=== PATIENT | male | born 1965 | race Caucasian/White ===

== ENCOUNTER 2020-02-27 12:44 | Outpatient (CLI) | payer OTHER, SELFPAY ==
--- NOTE | ~2020-02-27 | US_ITS ---
EXAMINATION: US carotid duplex BI EXAM DATE: 02/27/2020 13:40 INDICATION: Left carotid bruit. TECHNIQUE: Grayscale, color and pulsed Doppler images of the cervical carotid arteries were obtained . The degree of vessel stenosis is placed in one of the following categories: normal, <50% stenosis, 50-69% stenosis, >=70% stenosis but less than near-occlusion, near-occlusion, or occlusion. Note that percent stenosis relative to normal distal artery lumen diameter is indirectly measured from velocit y measurements as described by Philip, et al. Radiology 2003; 229:340-346. There is no prior study fo r comparison. FINDINGS: RIGHT SIDE: Right common carotid artery peak systolic velocity (PSV in cm/s): 90 Right bulb/internal carotid artery peak systolic velocity (PSV in cm/s): 108 Right internal carotid artery end diastolic velocity (EDV in cm/s): 35 Right ICA/CCA peak systolic ratio: 1.2 Right external carotid artery peak systolic velocity (PSV in cm/s): 98 Right vertebral artery antegrade flow: yes There is mild carotid bulb plaque. Velocity and Doppler waveforms in the common and internal carotid arteries is normal. LEFT SIDE: Left common carotid artery peak systolic velocity (PSV in cm/s): 82 Left bulb/internal carotid artery peak systolic velocity (PSV in cm/s): 102 Left internal carotid artery end diastolic velocity (EDV in cm/s): 48 Left ICA/CCA peak systolic ratio: 1.2 Left external carotid artery peak systolic velocity (PSV in cm/s): 304 Left vertebral artery antegrade flow: Yes There is moderate carotid bulb plaque. Velocity and Doppler waveforms in the common and internal carotid arteries is normal. Elevated rrts al carotid artery velocity. IMPRESSION: 1. Less than 50 percent stenosis in the right internal carotid artery. 2. Less than 50 percent stenosis in the left internal carotid artery. > Reviewed, dictated and finalized at location B.
== END 2020-02-27 12:45 | disposition home or self-care (01) ==
PROVIDERS: PCP Family Medicine; Visit Provider Physician Assistant Medical
DX: I65.23 Occlusion and stenosis of bilateral carotid arteries (principal)
CPT/HCPCS: 93880

== ENCOUNTER 2021-07-08 10:57 | Emergency (ER) | payer OTHER, SELFPAY ==
[2021-07-08 11:10] VITALS: BP 156/77; PULSE 99; RESP 20; TEMP 36.6; O2SAT 98
--- NOTE | 2021-07-08 12:01 | ED.URI ---
HPI - URI/Sore Throat General Chief Complaint: Upper Respiratory Infection Stated Complaint: Chest Congestion/Cough Time Seen by Provider: 07/08/21 12:01 Source: patient and RN notes reviewed Mode of arrival: ambulatory Limitations: no limitations History of Present Illness HPI Narrative: Anshu is a 55-year-old male patient who ambulated into the [facility]. Patient patient states he has a 3 to 4-day history of cough congestion for the last 3 days. Patient states the cough is getting much worse and when he lays down he coughs. Patient has a history of insulin-dependent diabetes. Patient has been taking muco-kui-zigikxy DayQuil and NyQuil without relief. Patient states he was a long-term smoker quit 6 to 7 years ago. MD elicited complaint: cough Related Data Home Medications Medication Instructions Recorded Confirmed aspirin 81 mg tablet,delayed 81 mg PO DAILY 10/20/19 07/08/21 release insulin syringe-needle U-100 0.5 #10 each 10/20/19 mL 31 gauge x 5/16 multivitamin 1 tablet PO DAILY 10/20/19 07/08/21 insulin glargine [Lantus U-100 40 unit SUBCUT DAILY 07/08/21 07/08/21 Insulin] Allergies Allergy/AdvReac Type Severity Reaction Status Date / Time Sulfa (Sulfonamide Allergy Unknown Skin Verified 05/01/20 13:40 Antibiotics) Reaction Review of Systems Review of Systems: CONSTITUTIONAL: Denies body aches, fever, chills, or sweats. EYES: Denies visual changes, redness, or discharge. ENT: Denies rhinorrhea,+ congestion, denies sore throat, or otalgia. CARDIOVASCULAR: Denies chest pain, palpitations, or edema. RESPIRATORY: + cough or dyspnea. GASTROINTESTINAL: Denies abdominal pain, nausea, vomiting, or diarrhea. GENITOURINARY: Denies dysuria or hematuria. SKIN: Denies rash, itching, or wounds. MUSCULOSKELETAL: Denies back pain, joint pain, or myalgia. NEUROLOGIC: Denies headache, numbness, tingling, or weakness. PSYCH: Denies depression or anxiety. All systems reviewed & are unremarkable except as noted in HPI and below PMFSH Past Medical History Medical History Cataract associated with type 1 diabetes mellitus Diabetic retinopathy, nonproliferative, mild Vitreous detachment of both eyes Family History Family History Father Hypertension Family history of lymphoma Mother Hypertension Acute myocardial infarction Social History Social History Smoking status: Current every day smoker Alcohol intake: current Comments At time of signature, I have reviewed and agree with nursing past medical, surgical, social and family history unless otherwise noted. Please see nursing chart for further information. There is no relevant family history pertinent to the presenting complaint Exam Narrative: GENERAL: Well-appearing, well-nourished, and in no acute distress. HEAD: Normocephalic, atraumatic. EYES: EOMI. No redness or drainage. Conjunctivae normal. ENT: Mucous membranes pink and moist. Nasal passage erythematous with clear rhinorrhea. Bilateral tympanic membranes are dull without erythema and minimal bulging. Posterior pharynx is erythemic without exudate. N NECK: Normal AROM. Supple. No lymphadenopathy. CHEST: No respiratory distress. Inspiratory next Tory wheezing heard throughout the lung ocampo. MUSCULOSKELETAL: No bony tenderness. EXTREMITIES: Normal range of motion. No edema. SKIN: Warm, dry, no rash. Capillary refill normal. Normal skin turgor. NEURO: No focal deficits. Alert and oriented x3. Gait steady. PSYCH: Normal affect. No signs of depression or anxiety. Course Vital Signs Vital signs: Vital Signs Temperature 36.6 C 07/08/21 11:10 Pulse Rate 99 07/08/21 11:10 Respiratory Rate 20 07/08/21 11:10 Blood Pressure 156/77 H 07/08/21 11:10 Pulse Oximetry 98 07/08/21 11:10
== END 2021-07-08 12:21 | disposition home or self-care (01) ==
PROVIDERS: Emergency Provider Nurse Practitioner Family; PCP Family Medicine
DX: J40 Bronchitis, not specified as acute or chronic (principal); H26.9 Unspecified cataract; E10.3299 Type 1 diabetes mellitus with mild nonproliferative diabetic retinopathy without macular edema, unspecified eye; Z87.891 Personal history of nicotine dependence; Z79.82 Long term (current) use of aspirin
CPT/HCPCS: 99213; G0463

== ENCOUNTER 2022-02-03 12:24 | Inpatient (IN) | payer OTHER, SELFPAY ==
[2022-02-03] VITALS (7 sets, daily range): BP systolic 131–180; BP diastolic 75–105; PULSE 99–116; RESP 18–20; TEMP 36.2–36.7; O2SAT 96–99; BMI 29.2
--- NOTE | ~2022-02-03 | XR_ITS ---
XR chest 2V 02/03/2022 12:52 Indication: Chest pain, shortness of breath. COPD. Procedure: 2 view chest Comparison: No prior studies for comparison. Findings: There is widespread bilateral airspace disease. Cardiomegaly. No pleural effusion or pneumo thorax. There is pectus excavatum. Impression: 1: Widespread bilateral airspace disease, most likely edema. Pneumonia less favored. 2: Cardiomegaly. Reviewed, dictated and finalized at location A. Impression: 1: Widespread bilateral airspace disease, most likely edema. Pneumonia less fav ored. 2: Cardiomegaly.
--- NOTE | 2022-02-03 12:29 | ECG_ITS ---
Measurements Intervals [place] Rate: 112 P: 71 [place]: 141 QRS: 89 QRSD: 102 T: 168 QT: 338 QTc: 463 Interpretive Statements SINUS TACHYCARDIA POSSIBLE RIGHT ATRIAL ENLARGEMENT LEFT ATRIAL ENLARGEMENT BORDERLINE R WAVE PROGRESSION, ANTERIOR LEADS ST-T WAVE ABNORMALITY IN HIGH LATERAL LEADS- CONSIDER ISCHEMIA BASELINE WANDER- V3 ABNORMAL ECG Electronically Signed On 02-03-2022 13:50:23 CDT by Ja Carrasquillo D.O.
[2022-02-03 12:53] LABS: Alanine Aminotransferase 24 U/L (6-50); Albumin Level 4.5 g/dL (3.5-5.1); Alkaline Phosphatase 91 U/L (38-126); Anion Gap 6 mmol/L (8-16); Aspartate Amino Transferase 40 U/L (17-59); Basophils Absolute Auto 0.1 K/mm3 (0.0-0.1); Basophils Percent Auto 0.4 % (0.2-1.2); Bilirubin,Total 0.6 mg/dL (0.2-1.3); Blood Urea Nitrogen 11 mg/dL (9-20); Carbon Dioxide 27 mmol/L (22-30); Chloride 102 mmol/L (98-107); Eosinophils Absolute Auto 0.4 K/mm3 (0-0.3); Eosinophils Percent Auto 2.8 % (0-4.4); Estimated CRCL calculation 64 ml/min; Estimated Glomerular Filt Rate > 60; Glucose 200 mg/dL (65-110); Hematocrit 41.1 % (42.0-52.0); Hemoglobin 13.2 g/dL (14.0-18.0); Immature Granulocyte Absolute 0.04 K/mm3 (0.00-0.031); Immature Granulocyte Percent A 0.3 % (0-0.5); Lipase 35 U/L (23-300); Lymphocytes Percent Auto 13.3 % (18.3-44.2); Mean Corpuscular HGB Conc 32.1 g/dl (32-36); Mean Corpuscular Hemoglobin 30.3 pg (26-34); Mean Corpuscular Volume 94.3 fl (80-100); Mean Platelet Volume 10.2 fl (7.4-10.4); Monocytes Absolute Auto 1.2 K/mm3 (0.1-0.6); Monocytes Percent Auto 8.3 % (2.6-8.5); Neutrophils Absolute Auto 10.7 K/mm3 (1.3-6.7); Neutrophils Percent Auto 74.9 % (45.5-73.1); Platelet Count Result 335 k/mm3 (150-375); Potassium 4.5 mmol/L (3.4-5.0); Red Blood Count 4.36 M/mm3 (4.6-6.20); Red Cell Distribution Width 14.3 % (11.5-14.5); Sodium 135 mmol/L (137-145); White Blood Count 14.3 K/mm3 (4.5-10.0)
[2022-02-03 12:58] LABS: Prothrombin Time 12.8 Seconds (11.1-14.7)
[2022-02-03 12:59] LABS: Partial Thromboplastin Time 33.6 SECONDS (22.3-36.8)
[2022-02-03 13:11] LABS: Troponin I 0.486 ng/mL (0.000-0.034)
[2022-02-03] MEDS: ASPIRIN 81 MG CHEWABLE TABLET 324 MG PO (13:41)
--- NOTE | 2022-02-03 13:49 | ECG_ITS ---
Measurements Intervals [place] Rate: 103 P: 67 [place]: 141 QRS: 34 QRSD: 102 T: -4 QT: 351 QTc: 460 Interpretive Statements SINUS TACHYCARDIA LEFT ATRIAL ENLARGEMENT DELAYED PRECORDIAL R/S TRANSITION BORDERLINE ST-T WAVE ABNORMALITY- INF/HIGH LAT LEADS BORDERLINE ECG Electronically Signed On 02-03-2022 14:35:42 CDT by Ja Carrasquillo D.O.
[2022-02-03 13:54] LABS: NT Pro B Type Natriuretic Pept 2420 pg/mL (5-100)
--- NOTE | 2022-02-03 13:57 | ED.SOB ---
HPI - SOB/Dyspnea General Chief Complaint: Shortness of Breath/Dyspnea Stated Complaint: COPD Issues Time Seen by Provider: 02/03/22 13:26 History of Present Illness HPI Narrative: 56-year-old male who is here because he was having some shortness of breath, denies any chest pain whatsoever, he states that he feels like his usual COPD exacerbations that is why he came to the hospital. No nausea or vomiting, no diaphoresis, no cough. No history of cardiac problems. He has been taking all of his blood pressure medications. Related Data Home Medications Medication Instructions Recorded Confirmed aspirin 81 mg tablet,delayed 81 mg PO DAILY 10/20/19 02/03/22 release insulin syringe-needle U-100 0.5 #10 ea 10/20/19 02/03/22 mL 31 gauge x 5/16 (Advocate Syringes) multivitamin 1 tablet PO DAILY 10/20/19 02/03/22 insulin glargine 100 unit/mL 40 unit subcut HS 07/08/21 02/03/22 subcutaneous solution (Lantus U-100 Insulin) insulin lispro 100 unit/mL 15 unit subcut TIDWM 02/03/22 02/03/22 subcutaneous solution (Humalog U-100 Insulin) Allergies Allergy/AdvReac Type Severity Reaction Status Date / Time Sulfa (Sulfonamide Allergy Unknown Skin Verified 05/01/20 13:40 Antibiotics) Reaction Review of Systems Review of Systems: CONST: No fever. HEENT: No sore throat C/V: No chest pain RESP: Shortness of breath GI: No abdominal pain : No dysuria. M/S: No joint pain. SKIN: No rash. NEURO: [No headache or focal numbness or weakness] PSYCH: [No depression] [facility] Past Medical History Medical History Cataract associated with type 1 diabetes mellitus Diabetic retinopathy, nonproliferative, mild Vitreous detachment of both eyes Family History Family History Father Hypertension Family history of lymphoma Mother Hypertension Acute myocardial infarction Social History Social History Smoking packs per day: 1 Smoking cigarettes per day: 20.0 Years smoked: 45 Smoking pack-years: 45.00 Smoking status: Current every day smoker Tobacco type: cigarettes Second hand tobacco smoke exposure: Yes Additional smoking assessment comments: 5 cigars per day Alcohol intake: never Substance use: never Substance use type: does not use Spiritual care concerns: No Exam Narrative: EXAMINATION OF ORGAN SYSTEMS/BODY AREAS: Constitutional: Vital signs per nursing GENERAL: Slightly tachypneic but nontoxic appearing HEAD: Normal with no signs of head trauma. EYES: EOMI, conjunctiva normal ENT: Hearing grossly intact LUNGS: Slightly labored breathing but no wheezing HEART: Tachycardic ABD: [Soft], nontender EXT: Normal range of motion SKIN: [No rashes or lesions.] NEURO: [Alert and oriented x 3. No gross focal sensory or strength deficits.] PSYCH: Normal affect Course Vital Signs Vital signs: Vital Signs Temperature 97.6 F 02/03/22 12:27 Pulse Rate 116 H 02/03/22 12:27 Respiratory Rate 20 02/03/22 12:27 Blood Pressure 178/85 H 02/03/22 12:27 Pulse Oximetry 98 02/03/22 12:27 Oxygen Delivery Room Air 02/03/22 12:27 Temperature 97.5 F L 02/03/22 20:00 Pulse Rate 102 H 02/03/22 20:00 Respiratory Rate 20 02/03/22 20:00 Blood Pressure 162/105 H 02/03/22 20:00 Pulse Oximetry 97 02/03/22 20:00 Oxygen Delivery Room Air 02/03/22 13:45 MDM - SOB/Dyspnea MDM Narrative Medical decision making narrative: 56-year-old male presenting with shortness of breath, on exam he is tachycardic but not wheezing, I am therefore concerned for other possible causes of his shortness of breath. EKG - 12-Lead: Performed at 1419. Interpreted by me. [Sinus rhythm]. Rate 103. normal axis. NM-interval 141. QRS duration 102. QTc 460. There is some possible ST elevation in lead III with some pos
[2022-02-03] MEDS: FUROSEMIDE INJ 40 MG/4 ML VIAL 20 MG IV PUSH (13:59)
[2022-02-03 14:55] LABS: Glucose Point of Care 40 mg/dl (65-105)
--- NOTE | 2022-02-03 14:58 | PC.NURSE ---
Pt called out states that he is feeling shakey probably due to low blood sugar. Pts blood sugar was taken and it was 40. Pt requested a pepsi. Informed EDP of this.
[2022-02-03 15:15] LABS: SARS-CoV-2 RNA PCR Negative
[2022-02-03 16:00] LABS: Troponin I 0.565 ng/mL (0.000-0.034)
[2022-02-03] MEDS: HEPARIN SODIUM 5,000 UNITS/ML VIAL 3500 UNITS IV PUSH (16:18)
[2022-02-03] MEDS: HEPARIN SOD/D5W 100 UNITS/ML 25,000 UNITS/250 ML BAG 7 UNITS IV CONT (16:58)
--- NOTE | 2022-02-03 17:06 | PC.NURSE ---
Cardiology speaking with pt at this time
--- NOTE | 2022-02-03 17:16 | PC.NURSE ---
This RN called to give report. Was told that nurse taking my pt was running around and will call me back
--- NOTE | 2022-02-03 17:49 | PM.CNCAR ---
Assessment and Plan Assessment and plan (1) Tobacco use disorder, moderate, dependence: Code(s): F17.200 - Nicotine dependence, unspecified, uncomplicated Status: Acute Assessment and Plan: Counseled regarding smoking cessation.g (2) Essential (primary) hypertension: Code(s): I10 - Essential (primary) hypertension Status: Acute Assessment and Plan: Stable. (3) Mixed hyperlipidemia: Code(s): E78.2 - Mixed hyperlipidemia Status: Acute Assessment and Plan: On Simvastatin. (4) DM eye manif type I: Code(s): E10.39 - Type 1 diabetes mellitus with other diabetic ophthalmic complication Status: Acute Assessment and Plan: Managed by hospitalist. (5) Elevated troponin: Code(s): R77.8 - Other specified abnormalities of plasma proteins Status: Acute Assessment and Plan: This could be CHF, ACS, COPD/pneumonia. Troponin 0.48, then 0.56. Serial troponin to peak. No classic symptom to suggest ACS but he does have DM and his symptom could be SOB. Obtain echo. If this shows cardiomyopathy or segmental wall motion abnormality, then he would benefit from left heart cath. He is receiving Heparin drip in case this is ACS. History of Present Illness History of Present Illness Consult date/time: 02/03/22 17:49 Reason for consult: CHF. 56 yr old man presented to ER with sob. He has a history of DM, hypertension, dyslipidemia, smoking, COPD. Reports for the past 1 week he has noted more SOB and coughing. No fever or chills. He smokes 1 ppd. EKG shows sinus tachycardia at 103 bpm, borderline ST-T wave abnormality. CXR shows bilateral airspace disease, most likely edema. Troponin elevated at 0.48, then 0.56. NTproBNP 2,420. Patient received Lasix and states he is 100% better. Reason For Visit: New Onset HF, NSTEMI Review of Systems Review of Systems: All systems reviewed & are unremarkable except as noted in HPI and below Constitutional: Constitutional: Reports as per HPI, Denies chills and Denies fever(s) Cardiovascular: Cardiovascular: Reports as per HPI, Denies chest pain, Denies irregular heart rhythm, Denies leg edema and Denies lightheadedness Respiratory: Respiratory: Reports as per HPI, Reports cough, Reports dyspnea and Reports dyspnea on exertion Gastrointestinal: Gastrointestinal: Reports as per HPI and Denies abdominal pain Genitourinary: Genitourinary: Reports as per HPI and Denies dysuria Musculoskeletal: Musculoskeletal: Reports as per HPI Neurologic: Reports as per HPI, Denies dizziness and Denies syncope [facility] Past Medical History Medical History Cataract associated with type 1 diabetes mellitus Diabetic retinopathy, nonproliferative, mild Vitreous detachment of both eyes Family History Family History Father Hypertension Family history of lymphoma Mother Hypertension Acute myocardial infarction Social History Social History Smoking status: Current every day smoker Alcohol intake: current Meds Home Medications and Allergies Home Medications Medication Instructions Recorded Confirmed Type aspirin 81 mg tablet,delayed 81 mg PO DAILY 10/20/19 07/08/21 History release insulin syringe-needle U-100 0.5 #10 ea 10/20/19 History mL 31 gauge x 5/16 (Advocate Syringes) multivitamin 1 tablet PO DAILY 10/20/19 07/08/21 History insulin degludec 100 unit/mL 40 unit (0.4 mL) subcut DAILY #40 05/07/20 07/08/21 Rx subcutaneous solution (Tresiba mL U-100 Insulin) omeprazole 40 mg capsule,delayed 40 mg PO DAILY 90 days #90 caps 04/08/21 07/08/21 Rx release blood sugar diagnostic (OneTouch #500 ea 06/09/21 Rx Verio test strips) insulin syringe-needle U-100 0.5 #100 ea 06/09/21 Rx mL 31 gauge x 5/16 (B
[2022-02-03 18:00] LABS: Glucose Point of Care 138 mg/dl (65-105)
--- NOTE | 2022-02-03 18:06 | ADMGEN ---
This patient, Michael Johnson, was admitted to IMU Room 209-01. Patient/family oriented to hospital policies and general routines including ID bracelet, bed and alarms, visiting hours, pain management, procedures, bathroom and other care routines, personal items, smoking policy, room service/diet, and visiting hours. Information on how to activate the Rapid Response Team has been discussed. Patient/Family are encouraged to report perceived risks to care and to ask questions if they do not understand what they are told or what they should do.
[2022-02-03 19:02] LABS: Basophils Absolute Auto 0.1 K/mm3 (0.0-0.1); Basophils Percent Auto 0.5 % (0.2-1.2); Eosinophils Absolute Auto 0.3 K/mm3 (0-0.3); Eosinophils Percent Auto 1.9 % (0-4.4); Hematocrit 39.8 % (42.0-52.0); Immature Granulocyte Absolute 0.03 K/mm3 (0.00-0.031); Immature Granulocyte Percent A 0.2 % (0-0.5); Lymphocytes Absolute Auto 1.94 K/mm3 (0.9-3.2); Lymphocytes Percent Auto 14.7 % (18.3-44.2); Mean Corpuscular HGB Conc 32.7 g/dl (32-36); Mean Corpuscular Hemoglobin 30.5 pg (26-34); Mean Corpuscular Volume 93.4 fl (80-100); Mean Platelet Volume 10.2 fl (7.4-10.4); Monocytes Absolute Auto 1.1 K/mm3 (0.1-0.6); Neutrophils Absolute Auto 9.9 K/mm3 (1.3-6.7); Neutrophils Percent Auto 74.7 % (45.5-73.1); Platelet Count Result 326 k/mm3 (150-375); Red Blood Count 4.26 M/mm3 (4.6-6.20); Red Cell Distribution Width 14.3 % (11.5-14.5); White Blood Count 13.2 K/mm3 (4.5-10.0)
[2022-02-03 19:13] LABS: INR 1.1; Prothrombin Time 13.6 Seconds (11.1-14.7)
[2022-02-03 19:14] LABS: Partial Thromboplastin Time 46.7 SECONDS (22.3-36.8)
[2022-02-03 19:37] LABS: Troponin I 0.693 ng/mL (0.000-0.034)
[2022-02-03 19:53] LABS: Glucose Point of Care 149 mg/dl (65-105)
[2022-02-03] MEDS: NICOTINE (*PBKC) 21 MG PATCH 1 PATCH TRANSDERM (20:38)
[2022-02-03] MEDS: hydrOXYzine HCL 25 MG TABLET PO (20:38)
--- NOTE | 2022-02-03 23:07 | PM.IMHP ---
H&P: HPI History of Present Illness Date/Time: 02/03/22 23:07 Chief Complaint: Increased shortness of breath Narrative: 56-year-old male with past medical history of COPD with continued tobacco use diabetes mellitus, GERD, and hyperlipidemia who presented to the ER with increased shortness of breath. He reports that he has a chronic smoker's cough but his cough is also worsened over the last 2 days. He reports that usually when he gets a COPD exacerbation he also developed some orthopnea. He denies any productive cough. He denies any fevers or chills. He denies any recent ill contacts. He has not noticed any lower extremity edema. He denies any significant orthopnea. He denies having any chest pain or palpitations. He denies any diaphoresis, nausea, vomiting or dyspnea on exertion. He reports that he recently walked in a 2.5mi parade caring drums that weighed 40-50 lb without having any respiratory or cardiac symptoms. He reports that his last hemoglobin A1c in October was 7.1. His glucoses have been well controlled. He was moderately hyperglycemic with glucose of 200 on arrival to the ER but did drop down to the 50s while he was in the ER. He denies any dysuria, hematuria or changes in urinary frequency. He has never had a colonoscopy but denies any hematochezia or melena. In the ER patient did have moderately elevated troponins. Chest x-ray demonstrated bilateral airspace disease more consistent with edema than pneumonia. In the ER patient was noted to be hypertensive. He reports that he has been compliant with his home antihypertensives. He did receive Lasix in the ER which she reported give him significant improvement in his shortness of breath. He does weigh himself every 2-3 days and reports that his weight has been stable between 175 and 180 lb. The patient reports that he feels like he is having his usual COPD exacerbation. The patient actually threatened to leave the hospital against medical advice that he could go out and smoke. Patient has calmed down since he has a nicotine patch in place. Review of Systems Review of Systems: 12 systems were reviewed with pertinent positives and negatives per HPI. Except as documented in the HPI, all other systems were reviewed and are negative. [facility] Past Medical History Medical History (Updated 02/04/22 @ 01:31 by Odette Cason DO) Cataract associated with type 1 diabetes mellitus COPD (chronic obstructive pulmonary disease) Diabetic peripheral neuropathy Diabetic retinopathy, nonproliferative, mild GERD (gastroesophageal reflux disease) Hyperlipidemia Tobacco use disorder, moderate, dependence Vitreous detachment of both eyes Surgical History Surgical History History of appendectomy Family History Family History (Updated 02/04/22 @ 01:17 by Odette Cason DO) Father , At age 65 Hypertension Lymphoma Mother Hypertension Acute myocardial infarction, Onset Age: 69 Social History Social History (Updated 02/04/22 @ 01:20 by Odette Cason DO) Social History: He lives with his girlfriend and her 2 children. He has 2 biological sons age 21 and 29. He is a retired since the age of 51. 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 He also participates in the [employer]. 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 He has smoked pack of cigarettes per day since he was 11 years old. He did stop smoking for approximately 5 years but then resumed. He drinks a couple of beers a night. Denies any illicit substance use. Code status: Full code Surrogate decision maker: Girlfriend Smoking packs per day: 1 Smoking cigarettes per day: 20.0 Years smoked: 40 Smoking pack-years: 40.00 Smoking status: Current every day smoker Tobacco type: cigarettes Second hand tobacco smoke exposure: Yes Additional smokin
[2022-02-04] VITALS (33 sets, daily range): BP systolic 126–174; BP diastolic 64–93; PULSE 90–121; RESP 12–23; TEMP 36.3–37.2; O2SAT 91–99
[2022-02-04] LABS: Partial Thromboplastin Time 40.8 SECONDS (22.3-36.8)
--- NOTE | 2022-02-04 | ECHO_ITS ---
Patient Info Name: Michael Johnson Age: 56 years : 1965 Gender: Male Ht: 66 in Wt: 134 lbs BSA: 1.68 m2 HR: 99 bpm BP: 153 / 93 mmHg Technical Quality: Good Exam Date: 02/04/2022 10:35 AM Exam Location: [facility] Pulmonary Exam Room: 209 Patient Status: Inpatient Admit Date: 02/03/2022 Staff Ordering Physician: Ja Carrasquillo DO Milling Machine Operator: Merna Espinal RDCS Attending Provider: Annabelle Villalobos MD Referring Physician: Foreign SLOAN; Exam Type: CA echo doppler color flow Study Info Indications - elevated trtoponins chf sob Complete two-dimensional, color flow and Doppler transthoracic echocardiogram is performed. Summary 1. Complete two-dimensional, color flow and Doppler transthoracic echocardiogram is performed. 2. Left ventricular chamber dimension is moderately enlarged. 3. Left ventricular systolic function is severely reduced, estimated at 20-25%. 4. The left ventricular diastolic function is abnormal. 5. E/e' 11 is mildly elevated. 6. There is mild aortic valve sclerosis. 7. No pulmonary hypertension, estimated pulmonary arterial systolic pressure is 39 mmHg. 8. There is trivial pericardial effusion. Left Ventricle E/e' 11 is mildly elevated. Global longitudinal strain is abnormal at -8.4%. Left ventricular chamber dimension is moderately enlarged. Left ventricular systolic function is severely reduced, estimated at 20-25%. The left ventricular diastolic function is abnormal. Right Ventricle Right ventricular chamber dimension is normal. Right ventricular systolic function is normal. Left Atria Left atrial chamber dimension is normal. Right Atria Right atrial chamber dimension is normal. Aortic Valve The aortic valve is trileaflet. There is mild aortic valve sclerosis. There is no aortic valve stenosis. There is no aortic valve regurgitation. Pulmonic Valve There is no pulmonic regurgitation. Mitral Valve There is no mitral valve stenosis. There is no mitral valve regurgitation. Tricuspid Valve There is no tricuspid valve regurgitation. No pulmonary hypertension, estimated pulmonary arterial systolic pressure is 39 mmHg. Pericardium/Pleural There is trivial pericardial effusion. Inferior Vena Cava Normal inferior vena cava with >50% collapse upon inspiration consistent with normal right atrial pressure, 5 mmHg. Aorta The aortic root size at the sinus of Valsalva is normal. Left Ventricular Outflow Tract Name Value Normal LVOT 2D LVOT Diameter 2.0 cm LVOT Doppler LVOT Peak Gradient 5 mmHg LVOT Mean Gradient 3 mmHg LVOT VTI 20 cm LVOT VTI/AV VTI Ratio 0.7 LVOT Stroke Volume 63 ml LVOT CO 16.3 l/min LVOT CI 9.7 l/min/m2 Pulmonic Valve Name Value Normal
[2022-02-04] MEDS: HEPARIN SODIUM 5,000 UNITS/ML VIAL 4000 UNITS IV PUSH (00:46)
[2022-02-04] MEDS: INSULIN GLARGINE (*BKC) 100 UNITS/ML 20 UNITS SUB-Q (00:47)
[2022-02-04] MEDS: IPRATROPIUM BR 0.02% INH SOLN 0.5 MG/2.5 ML VIAL INHALATION ×3 (01:49→17:20)
[2022-02-04] MEDS: methylPREDNISolone SOD SUCC 40 MG VIAL IV PUSH (02:10)
[2022-02-04 06:32] LABS: Basophils Percent Auto 0.3 % (0.2-1.2); Eosinophils Percent Auto 0.2 % (0-4.4); Hematocrit 42.7 % (42.0-52.0); Hemoglobin 13.7 g/dL (14.0-18.0); Immature Granulocyte Absolute 0.07 K/mm3 (0.00-0.031); Immature Granulocyte Percent A 0.5 % (0-0.5); Lymphocytes Absolute Auto 0.72 K/mm3 (0.9-3.2); Lymphocytes Percent Auto 5.1 % (18.3-44.2); Mean Corpuscular HGB Conc 32.1 g/dl (32-36); Mean Corpuscular Hemoglobin 30.1 pg (26-34); Mean Corpuscular Volume 93.8 fl (80-100); Mean Platelet Volume 10.3 fl (7.4-10.4); Monocytes Absolute Auto 0.2 K/mm3 (0.1-0.6); Monocytes Percent Auto 1.5 % (2.6-8.5); Neutrophils Absolute Auto 12.9 K/mm3 (1.3-6.7); Neutrophils Percent Auto 92.4 % (45.5-73.1); Platelet Count Result 320 k/mm3 (150-375); Red Blood Count 4.55 M/mm3 (4.6-6.20); Red Cell Distribution Width 14.2 % (11.5-14.5)
[2022-02-04 06:44] LABS: Partial Thromboplastin Time 59.9 SECONDS (22.3-36.8)
[2022-02-04 06:56] LABS: Anion Gap 8 mmol/L (8-16); Blood Urea Nitrogen 14 mg/dL (9-20); Calcium 8.9 mg/dL (8.4-10.2); Carbon Dioxide 24 mmol/L (22-30); Chloride 99 mmol/L (98-107); Estimated CRCL calculation 61 ml/min; Estimated Glomerular Filt Rate > 60; Glucose 299 mg/dL (65-110); Potassium 4.8 mmol/L (3.4-5.0); Sodium 131 mmol/L (137-145)
[2022-02-04 07:00] LABS: Troponin I 0.449 ng/mL (0.000-0.034)
[2022-02-04] MEDS: HEPARIN SODIUM 5,000 UNITS/ML VIAL 2500 UNITS IV PUSH (07:16)
--- NOTE | 2022-02-04 07:51 | PM.PNCARD ---
Progress Note: A&P Assessment and Plan (1) Elevated troponin: Code(s): R77.8 - Other specified abnormalities of plasma proteins Status: Acute Assessment and Plan: This could be CHF, ACS, COPD/pneumonia. Troponin peaked at .06.. No classic symptom to suggest ACS but he does have DM and his symptom could be SOB. On heparin drip, aspirin, start Coreg, on Irbesartan and Simvastatin. Obtain echo. Discuss risks/benefits/alternative treatment to left heart cath and he is agreeable to procedure. Will notify [facility] for procedure. (2) Tobacco use disorder, moderate, dependence: Code(s): F17.200 - Nicotine dependence, unspecified, uncomplicated Status: Acute Assessment and Plan: Counseled regarding smoking cessation. (3) Essential (primary) hypertension: Code(s): I10 - Essential (primary) hypertension Status: Acute Assessment and Plan: High. Start Coreg 12.5 mg BID. (4) Mixed hyperlipidemia: Code(s): E78.2 - Mixed hyperlipidemia Status: Acute Assessment and Plan: On Simvastatin. (5) Type 1 diabetes mellitus on insulin therapy: Code(s): E10.9 - Type 1 diabetes mellitus without complications Status: Acute Assessment and Plan: Managed as per hospitalist. (6) COPD exacerbation: Code(s): J44.1 - Chronic obstructive pulmonary disease with (acute) exacerbation Status: Acute Assessment and Plan: Managed as per hospitalist. Subjective Date/time seen: 02/04/22 07:51 Reports breathing is improving with neb treatments and lasix. No chest pains. Exam Const: General: cooperative, healthy appearing and comfortable Resp: Auscultation: no crackles, no rhonchi, no wheezes and diminished lung sounds Cardio: Jugular venous distension: no JVD Rate: regular rate Rhythm: regular rhythm Heart sounds: no murmurs Peripheral pulses: dorsalis pedis present GI: GI Palp: No abdominal tenderness and Yes Soft to palpation Neuro: General: oriented to person, oriented to place and oriented to time Extrem: Right lower extremity: no edema Left lower extremity: no edema Objective Data Vital Signs Vital Signs: Vital Signs - 24 hr 02/03/22 12:27 02/03/22 13:45 02/03/22 16:51 Temperature 97.6 F Pulse Rate 116 H 99 Respiratory Rate 20 18 Blood Pressure 178/85 H 131/75 Pulse Oximetry 98 96 Oxygen Delivery Room Air Room Air 02/03/22 17:59 02/03/22 18:00 02/03/22 20:00 Temperature 97.1 F L 97.5 F L Pulse Rate 105 H 106 H 102 H Respiratory Rate 20 20 Blood Pressure 153/78 H 162/105 H Pulse Oximetry 98 97 Oxygen Delivery 02/03/22 20:00 02/03/22 20:00 02/03/22 22:00 Temperature Pulse Rate 104 H 104 H 100 Respiratory Rate 20 Blood Pressure Pulse Oximetry 97 Oxygen Delivery Room Air 02/03/22 23:57 02/04/22 00:00 02/04/22 00:00 Temperature 98.0 F Pulse Rate 102 H 102 H 102 H Respiratory Rate 18 18 Blood Pressure 180/101 H Pulse Oximetry 99 99 Oxygen Delivery Room Air 02/04/22 01:49 02/04/22 01:54 02/04/22 01:58 Temperature Pulse Rate 96 99 Respiratory Rate 20 20 Blood Pressure Pulse Oximetry 96 Oxygen Delivery Room Air 02/04/22 02:00 02/04/22 04:00 02/04/22 04:00 Temperature Pulse Rate 97 96 96 Respiratory Rate 20 Blood Pressure Pulse Oximetry 96 Oxygen Delivery Room Air 02/04/22 04:00 02/04/22 05:45 Temperature 97.8 F Pulse Rate 99 99 Respiratory Rate 20 Blood Pressure 153/93 H Pulse Oximetry 99 Oxygen Delivery Intake/Output Intake/Output: Intake & Output 02/01/22 02/02/22 02/03/22 02/04/22 23:59 23:59 23:59 23:59 Intake Total 500 Output Total 750 Balance -250 Meds/Results Medications: Active Medications Generic Name Dose Route Start Last Admin Trade Name Louieq PRN Reason Stop Dose Admin Aspirin 81 mg 02/04/22 09:00 Aspirin 81 Mg Enteric Tablet PO DAILY SHAWN Carvedilol 12.5 mg 06
[2022-02-04] MEDS: INSULIN ASPART (*BKC) 100 UNITS/ML 15 UNITS SUB-Q ×2 (07:54→16:58)
[2022-02-04 08:10] LABS: Glucose Point of Care 350 mg/dl (65-105)
[2022-02-04] MEDS: FLUTICASONE/SALMETEROL 115-21 MCG INHALER 1 PUFF 2 PUFF INHALATION ×2 (08:20→21:48)
[2022-02-04] MEDS: NICOTINE (*PBKC) 21 MG PATCH 1 PATCH TRANSDERM (09:02)
[2022-02-04] MEDS: PANTOPRAZOLE 40 MG TABLET PO ×2 (09:05→21:30)
[2022-02-04] MEDS: SIMVASTATIN 10 MG TABLET PO (09:05)
[2022-02-04] MEDS: MULTIVITAMINS THERAPEUTIC TAB (*BKC) 1 TABLET PO (09:06)
[2022-02-04] MEDS: ASPIRIN 81 MG ENTERIC TABLET PO (09:06)
[2022-02-04 09:11] LABS: Glucose Point of Care 372 mg/dl (65-105)
[2022-02-04] MEDS: FUROSEMIDE INJ 40 MG/4 ML VIAL 20 MG IV PUSH ×2 (09:25→18:18)
[2022-02-04] MEDS: carvediloL 12.5 MG TABLET PO ×2 (09:25→21:28)
[2022-02-04] MEDS: INSULIN ASPART (*BKC) 100 UNITS/ML 10 UNITS SUB-Q (09:36)
[2022-02-04] MEDS: IRBESARTAN 150 MG TABLET 300 MG PO (11:06)
[2022-02-04 12:05] LABS: Glucose Point of Care 251 mg/dl (65-105)
--- NOTE | 2022-02-04 13:10 | PM.IMPN ---
Progress Note: A&P Assessment and Plan (1) Elevated troponin: Code(s): R77.8 - Other specified abnormalities of plasma proteins Status: Acute Assessment and Plan: plan for left heart catheterization. (2) Tobacco use disorder, moderate, dependence: Code(s): F17.200 - Nicotine dependence, unspecified, uncomplicated Status: Acute Assessment and Plan: cessation counseled (3) COPD exacerbation: Code(s): J44.1 - Chronic obstructive pulmonary disease with (acute) exacerbation Status: Acute Assessment and Plan: for history of COPD. Continue medications. Appears to be stable (4) Uncontrolled hypertension: Code(s): I10 - Essential (primary) hypertension Status: Acute Assessment and Plan: Monitor blood pressure (5) Type 1 diabetes mellitus on insulin therapy: Code(s): E10.9 - Type 1 diabetes mellitus without complications Status: Acute Assessment and Plan: monitor blood sugars, sliding scale insulin as needed. Subjective Date/time seen: 02/04/22 13:10 feeling better, no shortness of breath. No chest pain. Review of Systems Review of Systems: 10 point ROS negative except as stated in HPI / Subjective Exam Narrative: PHYSICAL EXAM: WEIGHT 82.2 kg BMI 29.2 General: Obese, no acute distress, appears stated age HEENT: Mucous membranes are tacky, no oral pharyngeal erythema, crowded posterior oropharynx, large neck circumference, pupils are equal and reactive Respiratory: Marked end-expiratory wheezing upper field greater than lower ocampo, no increased work of breathing Cardiovascular: Sinus tachycardia, 2+ bilateral radial pedal pulses, no murmurs Gastrointestinal: Distended, nontender, positive bowel sounds, soft Skin: No pallor, non jaundice Musculoskeletal: No clubbing, cyanosis or edema Neurological: Alert and oriented, speech is clear, no facial asymmetry, no localizing neurologic deficits noted during the course the capsule conversation Psychiatric: Appropriate mood and affect, pleasant and cooperative : Deferred Hematologic/lymphatic: No anterior cervical or submandibular lymphadenopathy, no petechiae, no bruising Objective Data Vital Signs Vital Signs: Vital Signs - 24 hr 02/03/22 13:45 02/03/22 16:51 02/03/22 17:59 Temperature 97.1 F L Pulse Rate 99 105 H Respiratory Rate 18 20 Blood Pressure 131/75 153/78 H Pulse Oximetry 96 98 Oxygen Delivery Room Air 02/03/22 18:00 02/03/22 20:00 02/03/22 20:00 Temperature 97.5 F L Pulse Rate 106 H 102 H 104 H Respiratory Rate 20 Blood Pressure 162/105 H Pulse Oximetry 97 Oxygen Delivery 02/03/22 20:00 02/03/22 22:00 02/03/22 23:57 Temperature 98.0 F Pulse Rate 104 H 100 102 H Respiratory Rate 20 18 Blood Pressure 180/101 H Pulse Oximetry 97 99 Oxygen Delivery Room Air 02/04/22 00:00 02/04/22 00:00 02/04/22 01:49 Temperature Pulse Rate 102 H 102 H 96 Respiratory Rate 18 20 Blood Pressure Pulse Oximetry 99 Oxygen Delivery Room Air 02/04/22 01:54 02/04/22 01:58 02/04/22 02:00 Temperature Pulse Rate 99 97 Respiratory Rate 20 Blood Pressure Pulse Oximetry 96 Oxygen Delivery Room Air 02/04/22 04:00 02/04/22 04:00 02/04/22 04:00 Temperature 97.8 F Pulse Rate 96 96 99 Respiratory Rate 20 20 Blood Pressure 153/93 H Pulse Oximetry 96 99 Oxygen Delivery Room Air 02/04/22 05:45 02/04/22 08:15 02/04/22 08:15 Temperature Pulse Rate 99 119 H 119 H Respiratory Rate 20 Blood Pressure Pulse Oximetry 93 Oxygen Delivery Room Air 02/04/22 08:33 02/04/22 08:00 02/04/22 09:25 Temperature 97.4 F L Pulse Rate 121 H 114 H 118 H Respiratory Rate 20 16 Blood Pressure 174/87 H Pulse Oximetry 97 Oxygen Delivery 02/04/22 10:00 02/04/22 10:00 02/04/22 11:05 Temperature Pulse Rate 120 H 120 H 111 H Respiratory Rate Blood Pressure 135/73
--- NOTE | 2022-02-04 14:18 | WPDMODSED ---
Moderate Sedation Note-Pt Data Patient Data Allergies Allergy/AdvReac Type Severity Reaction Status Date / Time Sulfa (Sulfonamide Allergy Unknown Skin Verified 05/01/20 13:40 Antibiotics) Reaction Home Medications Medication Instructions Recorded Confirmed Type aspirin 81 mg tablet,delayed 81 mg PO DAILY 10/20/19 02/03/22 History release insulin syringe-needle U-100 0.5 #10 ea 10/20/19 02/03/22 History mL 31 gauge x 5/16 (Advocate Syringes) multivitamin 1 tablet PO DAILY 10/20/19 02/03/22 History omeprazole 40 mg capsule,delayed 40 mg PO DAILY 90 days #90 caps 04/08/21 02/03/22 Rx release blood sugar diagnostic (OneTouch #500 ea 06/09/21 02/03/22 Rx Verio test strips) insulin syringe-needle U-100 0.5 #100 ea 06/09/21 02/03/22 Rx mL 31 gauge x 5/16 (BD Insulin Syringe Ultra-Fine) insulin glargine 100 unit/mL 40 unit subcut HS 07/08/21 02/03/22 History subcutaneous solution (Lantus U-100 Insulin) simvastatin 10 mg tablet 10 mg PO DAILY #90 tabs 08/25/21 02/03/22 Rx irbesartan 300 mg tablet 300 mg PO DAILY #90 tabs 11/03/21 02/03/22 Rx insulin lispro 100 unit/mL 15 unit subcut TIDWM 02/03/22 02/03/22 History subcutaneous solution (Humalog U-100 Insulin) Current Medications: Active Medications Aspirin (Aspirin 81 Mg Enteric Tablet) 81 mg PO DAILY [facility] Last Admin: 02/04/22 09:06 Dose: 81 mg Carvedilol (Carvedilol 12.5 Mg Tablet) 12.5 mg PO Q12HR [facility] Last Admin: 02/04/22 09:25 Dose: 12.5 mg Dextrose (Dextrose 50% 25 Gm/50 Ml Syringe) 12.5 gm IV PUSH PRN PRN; Protocol PRN Reason: Hypoglycemia Furosemide (Furosemide Inj 40 Mg/4 Ml Vial) 20 mg IV PUSH BID [facility] Last Admin: 02/04/22 09:25 Dose: 20 mg Glucagon (Glucagon For Inj 1 Mg Vial) 1 mg IM PRN PRN; Protocol PRN Reason: Hypoglycemia Glucose (Glucose Oral Gel 15 Gm Of Glucse In 37.5 Gm Tube) 15 gm PO PRN PRN; Protocol PRN Reason: Hypoglycemia Heparin Sodium (Porcine) (Heparin Sodium 5,000 Units/Ml Vial) 4,000 units IV PUSH PRN PRN PRN Reason: aPTT less than 55 seconds Last Admin: 02/04/22 00:46 Dose: 4,000 units Heparin Sodium (Porcine) (Heparin Sodium 5,000 Units/Ml Vial) 2,500 units IV PUSH PRN PRN PRN Reason: aPTT 55 - 70 seconds Last Admin: 02/04/22 07:16 Dose: 2,500 units Hydralazine HCl (Hydralazine Hcl 20 Mg/Ml Vial) 10 mg IV PUSH Q4H PRN PRN Reason: SBP greater than 160 Hydroxyzine HCl (Hydroxyzine Hcl 25 Mg Tablet) 25 mg PO Q6H PRN PRN Reason: Anxiety Last Admin: 02/03/22 20:38 Dose: 25 mg Heparin Sodium/Dextrose (Heparin Sodium/D5w 100 Units/Ml) 25,000 units in 250 mls @ 10 mls/hr IV CONT .Q24H SHAWN; Protocol Last Titration: 02/04/22 07:17 Dose: 1,000 units/hr, 10 mls/hr Dextrose (Dextrose 5% 1,000 Ml) 1,000 mls @ 100 mls/hr IVPB PRN PRN; Protocol PRN Reason: Hypoglycemia Insulin Aspart (Insulin Aspart (*Bkc) 100 Units/Ml) 3 - 6 units SUB-Q TIDWM SHAWN; Protocol Last Admin: 02/04/22 13:19 Dose: Not Given Insulin Aspart (Insulin Aspart (*Bkc) 100 Units/Ml) 15 units SUB-Q TIDWM SHAWN Stop: 03/06/22 07:59 Last Admin: 02/04/22 13:20 Dose: Not Given Insulin Glargine (Insulin Glargine (*Bkc) 100 Units/Ml) 40 units SUB-Q HS [facility]AWN Last Admin: 02/03/22 21:41 Dose: Not Given Ipratropium Bronson (Ipratropium Br 0.02% Inh Soln 0.5 Mg/2.5 Ml Vial) 0.5 mg INHALATION Q6HRT [facility] Last Admin: 02/04/22 08:15 Dose: 0.5 mg Irbesartan (Irbesartan 150 Mg Tablet) 300 mg PO DAILY [facility] Last Admin: 02/04/22 11:06 Dose: 300 mg Levalbuterol HCl (Levalbuterol Neb 1.25 Mg/0.5 Ml) 1.25 mg INHALATION Q6HRT [facility] Last Admin: 02/04/22 08:15 Dose: 1.25 mg Multivitamins Therapeutic (Multivitamins Therapeutic Tab (*Bkc)) 1 tablet PO DAILY [facility] Last Admin: 02/04/22 09:06 Dose: 1 tablet Nicotine (Nicotine (*Pbkc) 21 Mg Patch) 1 patch TRANSDERM QAM [facility] Last Admin: 02/04/22 09:02 Dose: 1 patch Pantoprazole Sodium (Pantoprazole 40 Mg Tablet) 40 mg PO Q12HR [facility] Last Admin:
--- NOTE | 2022-02-04 14:19 | PM.CNCAR ---
Assessment and Plan Assessment and plan (1) Systolic CHF: Code(s): I50.20 - Unspecified systolic (congestive) heart failure Status: Acute Assessment and Plan: 56-year-old male with hypertension, type 1 diabetes mellitus on insulin, dyslipidemia , heavy tobacco abuse. Patient admitted to the hospital with 1 week history of worsening dyspnea on exertion. EKG showed sinus tachycardia, biatrial enlargement, ST-T abnormality suggestive of possible ischemia. Troponins mildly elevated. Echocardiogram showed severe LV systolic dysfunction. After discussing benefits, risks and alternatives, patient willing to proceed with coronary angiogram to rule out significant obstructive Coronary artery disease. Standard treatment for CHF with reduced ejection fraction, which can include BB, ARNI, SGLT2 inhibitor, spironolactone etc. Diuretics as needed. Management per primary cardiac team. (2) Elevated troponin: Code(s): R77.8 - Other specified abnormalities of plasma proteins Status: Acute Assessment and Plan: Possible non ST elevation SC. patient willing to proceed with coronary angiogram to rule out significant obstructive CAD. (3) Type 1 diabetes mellitus: Code(s): E10.9 - Type 1 diabetes mellitus without complications Status: Acute Assessment and Plan: optimal diabetes mellitus control. Management as per primary team. (4) Tobacco abuse: Code(s): Z72.0 - Tobacco use Status: Acute Assessment and Plan: Smoking cessation counseling was done. History of Present Illness History of Present Illness Consult date/time: 02/04/22 14:19 Requesting physician: Ja Carrasquillo DO Consult reason: shortness of breath and Other (Troponin elevation cardiac catheterization) Reason For Visit: New Onset HF, NSTEMI Narrative: 56-year-old male with hypertension, type 1 diabetes mellitus on insulin, dyslipidemia , heavy tobacco abuse. Patient presented to [facility] Emergency Room on 02/03/2022 with complaints of shortness of breath. Patient states that he has been experiencing shortness of breath for about 1 week. He denies chest pain, palpitation, dizziness or syncope. No PND, orthopnea or lower extremity swelling. Patient does not recall any known prior cardiac history including clinical SC, angina, heart failure or any arrhythmias. EKG on my personal evaluation showed sinus tachycardia, biatrial enlargement, ST-T abnormality-possible ischemia. Troponins mildly elevated with peak troponin level of 0.693, which is trending downwards. NT proBNP elevated at 2420. Chest x-ray showed widespread bilateral airspace disease, most likely edema. Pneumonia less favored; Cardiomegaly. Echocardiogram reportedly showed severe LV systolic dysfunction, EF 20-25%. Patient was seen by Dr. Carrasquillo, and he requested interventional cardiology for further management including cardiac catheterization to rule out significant obstructive CAD. Review of Systems Review of Systems: General: Negative for fever, chills, fatigue Psychological: Negative for anxiety, depression Ophthalmic: negative for loss of vision ENT: Negative for epistaxis, headaches Allergy and immunology: Negative for hives, nasal congestion Hematologic and lymphatic: Negative for overt bleeding problems Endocrine: Negative for hot flashes, palpitations Respiratory: Negative for cough, hemoptysis Cardiovascular: Negative for chest pain, Positive for shortness of breath Gastrointestinal: Negative for abdominal pain, nausea, vomiting, hematochezia Musculoskeletal: Negative for myalgia, joint pains Neurological: Negative for weakness Dermatological: Negative for rash, skin discoloration PMFSH Past Medical History Medical History Cataract associated with type 1 diabetes mellitus COPD (chronic obstructive pulmonary disease) Diabetic peripheral neuropathy Diabetic ret
[2022-02-04 14:25] LABS: Partial Thromboplastin Time 57.3 SECONDS (22.3-36.8)
--- NOTE | 2022-02-04 14:34 | PC.NURSE ---
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
--- NOTE | 2022-02-04 15:00 | WPDCARDPROC ---
Cardiac Cath Procedure Note Date of procedure:: 02/04/22 Performing physician:: Eber Burks MD Procedure Procedure note:: LEFT HEART CATHETERIZATION AND CORONARY ANGIOGRAM REPORT DATE OF PROCEDURE: 02/04/2022 INDICATION FOR PROCEDURE: Non ST-elevation myocardial infarction, CHF with reduced ejection fraction BRIEF CLINICAL HISTORY:56-year-old male with hypertension, type 1 diabetes mellitus on insulin, dyslipidemia , heavy tobacco abuse. Patient presented to [facility] Emergency Room on 02/03/2022 with complaints of shortness of breath. EKG showed sinus tachycardia, biatrial enlargement, ST-T abnormality-possible ischemia.? Troponins mildly elevated with peak troponin level of 0.693, which were trending downwards.? NT proBNP elevated at 2420. Clinical presentation was suggestive of non ST elevation MO.? Echocardiogram reportedly showed severe LV systolic dysfunction, EF 20-25%. Patient was seen by Dr. Carrasquillo, and he requested interventional cardiology for further management including cardiac catheterization to rule out significant obstructive CAD. Benefits and risks of the procedure were discussed with the patient in depth, and informed consent was obtained prior to the procedure. Risks of the procedure include but are not limited to vascular complications including groin hematoma, retroperitoneal bleed, vessel perforation; periprocedural MO, cardiac arrhythmias, stroke, contrast induced nephropathy, and . After discussing all the benefits, risks and alternatives, patient was willing to proceed with the procedure. PROCEDURES PERFORMED: 1. Left heart catheterization- Selective left and right coronary angiogram; left ventriculogram and hemodynamic assessment 2. Moderate sedation-CPT code 79739 MODERATE SEDATION: Midazolam 2 mg; fentanyl 50 mcg; Start time 1433 , Stop time 1454 ; Total [id number] time 21 minutes; Connie Humphrey RN was trained observer for moderate sedation. ACCESS SITE: Right common femoral artery PROCEDURE NOTE: After obtaining informed consent, patient was brought to catheterization lab and prepped and draped in a usual sterile manner. After local anesthesia with lidocaine, right common femoral artery access was taken with micropuncture needle followed by insertion of a 5 Syriac sheath. Selective left and right coronary angiogram was performed using 5 Syriac JL4 and JR4 catheters respectively. Orthogonal views were taken. Next, a 5 Syriac pigtail catheter was advanced in the LV cavity and was flushed with normal saline. LV pressure measurement was performed. After this, left ventriculogram was performed. The catheter was flushed again, and gradient across the aortic valve was measured on the pullback of the catheter. Manual pressure was used for local hemostasis. Patient tolerated procedure well without any immediate procedure related complications. FINDINGS: LEFT MAIN CORONARY: Left main coronary artery is a medium caliber vessel, no significant focal stenosis. The vessel bifurcates into LAD and LCX branches. LEFT ANTERIOR DESCENDING ARTERY: Medium caliber vessel with diffuse narrowing in the proximal segment and diffuse about 60-70% stenosis in the mid segment at the origin of the diagonal branch. The LAD tapers distally and has diffuse plaque and high-grade about about 90% stenosis the distal-most segment near LV apex. D1 is a small caliber vessel with moderate severe diffuse disease. D2 is a medium caliber vessel with moderate diffuse disease. LEFT CIRCUMFLEX ARTERY: Medium caliber vessel, gives rise to medium caliber OM1 branch which gives rise to secondary and tertiary branches. There is a functional chronic total occlusion at the origin and proximal segment of OM1 branch. OM2 branch is a small to medium caliber vessel . There is about 70-80% stenosis in the mid circumflex artery between OM branches. RIGHT CORONARY ARTERY: The RCA is a smaller caliber vessel with severe diffuse disease pr
[2022-02-04] MEDS: SODIUM CHLORIDE 0.9% IV 1,000 ML 75 ML IV CONT (16:05)
[2022-02-04 16:15] LABS: Glucose Point of Care 290 mg/dl (65-105)
[2022-02-04] MEDS: predniSONE 20 MG TABLET 40 MG PO (16:56)
[2022-02-04] MEDS: INSULIN ASPART (*BKC) 100 UNITS/ML SUB-Q (16:58)
[2022-02-04 19:52] LABS: Glucose Point of Care 344 mg/dl (65-105)
[2022-02-04] MEDS: INSULIN GLARGINE (*BKC) 100 UNITS/ML 40 UNITS SUB-Q (21:31)
[2022-02-05] VITALS: PULSE 94; RESP 18; O2SAT 99
--- NOTE | 2022-02-05 01:40 | PC.NURSE ---
[facility] called with a bed for the patient. [id number]. report was called to yong rivera at [facility]. will call [facility] for transport and will call back when patient is leaving.
[2022-02-05] MEDS: IPRATROPIUM BR 0.02% INH SOLN 0.5 MG/2.5 ML VIAL INHALATION (01:49)
[2022-02-05 01:50] VITALS: PULSE 87; RESP 18
[2022-02-05 02:00] VITALS: PULSE 84; PULSE 98; RESP 18
[2022-02-05 04:00] VITALS: BP 141/72; PULSE 84; PULSE 97; RESP 18; TEMP 36.6; O2SAT 99
--- NOTE | 2022-02-05 05:01 | PC.NURSE ---
[facility] is here to [employer] patient going to [facility]. update called to yong rivera at [facility].
--- NOTE | 2022-02-06 12:16 | PM.TDS ---
Transfer Discharge Sum: Prov Provider Date of admission: 02/03/22 16:10 Primary care physician: Rashad Ramires MD Admitting clinician: Annabelle Villalobos MD Consults: 02/03/22 16:11 Consult to Physician Routine Comment: Consulting Provider: Ja Carrasquillo Reason for consultation: new onset HF?, NSTEMI Has provider been notified: Yes 02/04/22 Consult to Physician Routine Comment: Called office and notified them of consult Consulting Provider: Jefe May intel analyst/MD group to consult: HCG Reason for consultation: Left heart cath Has provider been notified: Yes DS: Admitting Diagnosis Discharge Date 02/05/22 Admitting Diagnosis Chest pain DS: Discharge Diagnosis Discharge Diagnosis (1) Elevated troponin: Code(s): R77.8 - Other specified abnormalities of plasma proteins Status: Acute Assessment and Plan: Transfer to [facility] as patient has multivessel disease (2) Tobacco use disorder, moderate, dependence: Code(s): F17.200 - Nicotine dependence, unspecified, uncomplicated Status: Acute Assessment and Plan: cessation counseled (3) COPD exacerbation: Code(s): J44.1 - Chronic obstructive pulmonary disease with (acute) exacerbation Status: Acute Assessment and Plan: for history of COPD. Continue medications. Appears to be stable (4) Uncontrolled hypertension: Code(s): I10 - Essential (primary) hypertension Status: Acute Assessment and Plan: Monitor blood pressure (5) Type 1 diabetes mellitus on insulin therapy: Code(s): E10.9 - Type 1 diabetes mellitus without complications Status: Acute Assessment and Plan: monitor blood sugars, sliding scale insulin as needed. Transfer Discharge Sum: Med Medications Active and Home Medications: Home Medications aspirin 81 mg tablet,delayed release 81 mg PO DAILY 10/20/19 [History Confirmed 02/03/22] insulin syringe-needle U-100 0.5 mL 31 gauge x 5/16 (Advocate Syringes) #10 ea 10/20/19 [History Confirmed 02/03/22] multivitamin 1 tablet PO DAILY 10/20/19 [History Confirmed 02/03/22] omeprazole 40 mg capsule,delayed release 40 mg PO DAILY 90 days #90 caps 04/08/21 [Rx Confirmed 02/03/22] blood sugar diagnostic (LightwireTouch Verio test strips) #500 ea 06/09/21 [Rx Confirmed 02/03/22] insulin syringe-needle U-100 0.5 mL 31 gauge x 5/16 (BD Insulin Syringe Ultra-Fine) #100 ea 06/09/21 [Rx Confirmed 02/03/22] insulin glargine 100 unit/mL subcutaneous solution (Lantus U-100 Insulin) 40 unit subcut HS 07/08/21 [History Confirmed 02/03/22] simvastatin 10 mg tablet 10 mg PO DAILY #90 tabs 08/25/21 [Rx Confirmed 02/03/22] irbesartan 300 mg tablet 300 mg PO DAILY #90 tabs 11/03/21 [Rx Confirmed 02/03/22] insulin lispro 100 unit/mL subcutaneous solution (Humalog U-100 Insulin) 15 unit subcut TIDWM 02/03/22 [History Confirmed 02/03/22] Transfer Discharge Sum: Hosp Hospital Course Hospital course: Michael Johnson is a 56 year old male Time Spent with Patient Time attestation: Total time spent providing and/or coordinating transfer services: Exam Narrative: PHYSICAL EXAM: WEIGHT 82.2 kg BMI 29.2 General: Obese, no acute distress, appears stated age HEENT: Mucous membranes are tacky, no oral pharyngeal erythema, crowded posterior oropharynx, large neck circumference, pupils are equal and reactive Respiratory: Marked end-expiratory wheezing upper field greater than lower ocampo, no increased work of breathing Cardiovascular: Sinus tachycardia, 2+ bilateral radial pedal pulses, no murmurs Gastrointestinal: Distended, nontender, positive bowel sounds, soft Skin: No pallor, non jaundice Musculoskeletal: No clubbing, cyanosis or edema Neurological: Alert and oriented, speech is clear, no facial asymmetry, no localizing neurologic deficits noted during the course the capsule conversation Psychiatric: Appropriate mood and affect, pleasant and cooperative
== END 2022-02-05 05:01 | disposition short-term general hospital (02) | DRG 281 ==
LOC: ANHED 13:37 → ANHIMU 02-04 01:59
PROVIDERS: Internal Medicine; Internal Medicine Cardiovascular Disease; Admitting Provider Family Medicine; Emergency Provider Emergency Medicine; PCP Family Medicine; Visit Provider Chiropractor
PROC: 4A023N7 Measurement of Cardiac Sampling and Pressure, Left Heart, Percutaneous Approach (ICD-10-PCS; CPT 93452; principal; 2022-02-04 14:10)
DX: I21.4 Non-ST elevation (NSTEMI) myocardial infarction (principal); J44.1 Chronic obstructive pulmonary disease with (acute) exacerbation; I50.20 Unspecified systolic (congestive) heart failure; I11.0 Hypertensive heart disease with heart failure; I25.10 Atherosclerotic heart disease of native coronary artery without angina pectoris; I25.82 Chronic total occlusion of coronary artery; R77.8 Other specified abnormalities of plasma proteins; Z20.822 Contact with and (suspected) exposure to COVID-19; F17.210 Nicotine dependence, cigarettes, uncomplicated; E10.42 Type 1 diabetes mellitus with diabetic polyneuropathy; E10.36 Type 1 diabetes mellitus with diabetic cataract; E10.3299 Type 1 diabetes mellitus with mild nonproliferative diabetic retinopathy without macular edema, unspecified eye; H26.9 Unspecified cataract; H43.813 Vitreous degeneration, bilateral; E78.2 Mixed hyperlipidemia; K21.9 Gastro-esophageal reflux disease without esophagitis; Z79.4 Long term (current) use of insulin; Z79.82 Long term (current) use of aspirin; Z88.2 Allergy status to sulfonamides; Z79.899 Other long term (current) drug therapy
CPT/HCPCS: 36415; 71046; 80048; 80053; 82948; 83690; 83880; 84484; 85025; 85610; 85730; 93005; 93306; 93458; 94640; 96374; 99285; A9270; C1887; C1894; C9803; J0360; J0583; J1644; J1815; J1940; J2250; J2920; J3010; J7030; J7040; J7512; U0003; U0005

== ENCOUNTER 2022-08-12 10:26 | Emergency (ER) | payer OTHER, SELFPAY ==
[2022-08-12 10:31] VITALS: BP 169/76; PULSE 77; RESP 18; TEMP 36.4; O2SAT 99
--- NOTE | 2022-08-12 13:05 | ED.URI ---
HPI - URI/Sore Throat General Chief Complaint: Upper Respiratory Infection Stated Complaint: chest congestion Time Seen by Provider: 08/12/22 12:40 Source: patient, RN notes reviewed and old records reviewed Mode of arrival: ambulatory Limitations: no limitations History of Present Illness HPI Narrative: 57-year-old man who presents [facility] with chest congestion and cough for the past 6 days with yellowish to clear phlegm. Patient started with nasal congestion drainage right after Thanksgiving this has proceeded to go into chest. Patient did have open-heart surgery 6 months ago and also quit smoking at that time.Patient has taken DayQuil, NyQuil, and Mucinex for his symptoms. patient has been COVID vaccinated and has had flu shot. MD elicited complaint: cough, rhinorrhea and nasal congestion Onset (ago): day(s) (6) Able to tolerate fluids by mouth: Yes Treatments prior to arrival: other ( DayQuil, NyQuil, and Mucinex) Related Data Home Medications Medication Instructions Recorded Confirmed aspirin 81 mg tablet,delayed 81 mg PO DAILY 10/20/19 08/12/22 release insulin syringe-needle U-100 0.5 #10 ea 10/20/19 02/03/22 mL 31 gauge x 5/16 ([facility] Syringes) multivitamin 1 tablet PO DAILY 10/20/19 08/12/22 insulin glargine 100 unit/mL 40 unit subcut HS 07/08/21 08/12/22 subcutaneous solution (Lantus U-100 Insulin) insulin lispro 100 unit/mL 15 unit subcut TIDWM 02/03/22 08/12/22 subcutaneous solution (Humalog U-100 Insulin) carvedilol 12.5 mg tablet mg 08/12/22 clopidogrel 75 mg tablet 75 mg PO DAILY 08/12/22 08/12/22 losartan 100 mg tablet mg 08/12/22 Allergies Allergy/AdvReac Type Severity Reaction Status Date / Time Sulfa (Sulfonamide Allergy Unknown Skin Verified 05/01/20 13:40 Antibiotics) Reaction Review of Systems Review of Systems: CONSTITUTIONAL: Denies fever, chills, or sweats. EYES: Denies visual changes, redness, or discharge. ENT: rhinorrhea, congestion, no sore throat, or otalgia. CARDIOVASCULAR: Denies chest pain, palpitations, or edema. RESPIRATORY: reports cough denies dyspnea. GASTROINTESTINAL: Denies abdominal pain, nausea, vomiting, or diarrhea. GENITOURINARY: Denies dysuria or hematuria. SKIN: Denies rash or itching. MUSCULOSKELETAL: Denies back pain, joint pain, or myalgia. NEUROLOGIC: Denies headache, numbness, or weakness. PSYCHIATRIC: Denies anxiety or depression. All systems reviewed & are unremarkable except as noted in HPI and below PMFSH Past Medical History Medical History (Updated 08/13/22 @ 00:00 by Hailey Dalyn) Cataract associated with type 1 diabetes mellitus COPD (chronic obstructive pulmonary disease) Diabetic peripheral neuropathy Diabetic retinopathy, nonproliferative, mild GERD (gastroesophageal reflux disease) Hyperlipidemia Myocardial infarction Tobacco use disorder, moderate, dependence Vitreous detachment of both eyes Surgical History Surgical History (Updated 02/11/22 @ 16:21 by Rashad Ramires MD) History of appendectomy Hx of CABG Family History Family History Father , At age 65 Hypertension Lymphoma Mother Hypertension Acute myocardial infarction, Onset Age: 69 Social History Social History (Updated 08/14/22 @ 08:29 by Donita Coely NP) Social History: He lives with his girlfriend and her 2 children. He has 2 biological sons age 21 and 29. He is a retired since the age of 51. He used to work in [employer]. 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 He also participates in the [employer]. 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 He has smoked pack of cigarettes per day since he was 11 years old. He did stop smoking for approximately 5 years but then resumed. He drinks a couple of beers a night. Denies any illicit substance use. Code status: Full code Surrogate decision maker: Girlfriend
== END 2022-08-12 13:30 | disposition home or self-care (01) ==
PROVIDERS: Emergency Provider Registered Nurse; PCP Family Medicine
DX: J40 Bronchitis, not specified as acute or chronic (principal); Z87.891 Personal history of nicotine dependence; J44.9 Chronic obstructive pulmonary disease, unspecified; E11.42 Type 2 diabetes mellitus with diabetic polyneuropathy; E11.3299 Type 2 diabetes mellitus with mild nonproliferative diabetic retinopathy without macular edema, unspecified eye; E11.36 Type 2 diabetes mellitus with diabetic cataract; H26.9 Unspecified cataract; Z79.4 Long term (current) use of insulin; Z79.82 Long term (current) use of aspirin
CPT/HCPCS: 99213; G0463